=== PATIENT | male | born 1990 | race Hispanic/Latino ===

== ENCOUNTER 2017-09-09 22:02 | Emergency (ER) | payer OTHER ==
[2017-09-09 22:14] VITALS: BMI 27.6
[2017-09-09] MEDS ORDERED: Sodium Chloride 0.9% 500 ML IV STA (22:31)
--- NOTE | 2017-09-09 23:35 | ED PDOC ---
Arrival/HPI - General Chief Complaint: GI Problem Time Seen by Provider: 09/09/17 22:31 Historian: Patient EM Caveat: Unstable Vital Signs - History of Present Illness Narrative History of Present Illness (Text): 09/09/17 23:30 Pt is a 26 yo male who presents with 1 day of fever, diarrhea and vomiting ( approximately 1000ml) Pt states that he has felt fatigued for the past 2 weeks then suddenly woke up this morning with n/v/d, poor appetite, fever, chill, body pain. Denies chest pain, sob, [place], or any other symptoms. Has had sick contacts; states he has only been able to drink a bit of Gatorade today. Time/Duration: Prior to Arrival, 4-6 hours Symptom Onset: Sudden Symptom Course: Unchanged, Improving Quality: Aching, Pressure Severity Level: Mild Activities at Onset: Rest, Light, Eating Context: Work Past Medical History - Provider Review Nursing Documentation Reviewed: Yes - Travel History Have you recently traveled outside [place] w/in the past 3 mons?: No - Past History Past History: No Previous - Infectious Disease Hx of Infectious Diseases: None - Psychiatric Hx Substance Use: No - Surgical History Hx Appendectomy: Yes (2005) - Anesthesia Hx Anesthesia Reactions: No Hx Malignant Hyperthermia: No Family/Social History - Physician Review Nursing Documentation Reviewed: Yes Family/Social History: Unknown Family HX Smoking Status: Never Smoked Hx Alcohol Use: Yes Frequency of alcohol use: Socially Hx Substance Use: No Allergies/Home Meds Allergies/Adverse Reactions: Allergies No Known Allergies Allergy (Verified 09/09/17 22:14) Review of Systems - Review of Systems Constitutional: Normal, Fatigue, Fevers, Night Sweats Eyes: Normal ENT: Normal Respiratory: Normal Cardiovascular: Normal Gastrointestinal: Normal, Diarrhea (x 1day), Vomiting (x 1day), Appetite Changes Genitourinary Male: Normal Musculoskeletal: Arthralgias (x 1 day) Skin: Normal Neurological: Normal Endocrine: Normal Hemo/Lymphatic: Normal Psychiatric: Normal Physical Exam Vital Signs Reviewed: Yes Vital Signs Temp Pulse Resp BP Pulse Ox 09/10/17 00:50 98.7 F 82 18 103/54 L 100 09/09/17 22:02 100 F H 90 16 124/77 96 Temperature: Febrile Blood Pressure: Normal Pulse: Regular Respiratory Rate: Normal Appearance: Positive for: Non-Toxic, Uncomfortable Pain Distress: Mild Mental Status: Positive for: Alert and Oriented X 3 - Systems Exam Head: Present: Atraumatic, Normocephalic Pupils: Present: PERRL Extroacular Muscles: Present: EOMI Conjunctiva: Present: Normal Mouth: Present: Dry Pharnyx: Present: Normal Neck: Present: Normal Range of Motion Respiratory/Chest: Present: Clear to Auscultation, Good Air Exchange. No: Respiratory Distress, Accessory Muscle Use Cardiovascular: Present: Regular Rate and Rhythm, Normal S1, S2. No: Murmurs Abdomen: Present: Tenderness (mild, diffuse), Normal Bowel Sounds. No: Distention, Peritoneal Signs Back: Present: Normal Inspection Upper Extremity: Present: Normal Inspection. No: Cyanosis, Edema Lower Extremity: Present: Normal Inspection. No: Edema Neurological: Present: GCS=15, CN II-XII Intact, Speech Normal Skin: Present: Warm, Dry, Normal Color. No: Rashes Psychiatric: Present: Alert, Oriented x 3, Normal Insight, Normal Concentration Medical Decision Making ED Course and Treatment: 09/09/17 23:35 Impression Pt is a 26 yo male who presents with 1 day of fever, diarrhea and vomiting ( approximately 1000ml) Plan IV fluid bolus of 500 cc zofran tylenol Assess and Dispo Progress Note Pt states he feels much better on fluids with no urge to vomit Will likely wait until pt stable then send home on zofran, acetaminophen Oral intake challenge prior to dc; pt able to retain food and water Advised pt to return to ED promptly if high fever returns or any other alarming symptoms in the next 24 hrs VSS and pt ambulated well out out of the ED with father - Lab Interpretations Lab Results: Lab Results 09/09/17 22:47: Influenza Typ A,B (EIA) Negative for flu a/b - Medication Orders Current Medication Orders: Discontinued Medications Acetaminophen (Tylenol 325mg Tab) 650 mg PO STAT STA Stop: 09/09/17 22:34 Last Admin: 09/09/17 22:55 Dose: 650 mg Sodium Chloride (Sodium Chloride 0.9%) 500 mls @ 999 mls/hr IV .Q31M STA Stop: 09/09/17 23:01 Last Admin: 09/09/17 22:56 Dose: 999 mls/hr eMAR Start Stop Document 09/09/17 22:56 CNR (Rec: 09/09/17 22:56 CNR [id number]) Intravenous Solution Start Date 09/09/17 Start Time 22:56 Ondansetron HCl (Zofran Inj) 4 mg IVP STAT STA Stop: 09/09/17 22:33 Last Admin: 09/09/17 22:55 Dose: 4 mg IVP Administration Document 09/09/17 22:55 CNR (Rec: 09/09/17 22:55 CNR [id number]) Charges for Administration # of IVP Administrations 1 Disposition/Present on Arrival - Present on Arrival Any Indicators Present on Arrival: Yes History of DVT/PE: No History of Uncontrolled Diabetes: No Urinary Catheter: No History of Decub. Ulcer: No History Surgical Site Infection Following: None - Disposition Have Diagnosis and Disposition been Completed?: Yes Diagnosis: Influenza Disposition: HOME/ ROUTINE Disposition Time: 00:45 Patient Plan: Discharge Condition: STABLE Discharge Instructions (ExitCare): Ondansetron (By mouth), Influenza (ED) Additional Instructions: Dear Patient, You have been diagnosed with the flu that responds best to supportive care such as rest, plenty of fluids, and tylenol for pain and fever. If you have a cough, you may use Vicks VapoRub on the chest at night and use a humidifier. If you develop any alarming symptoms over the next 24 hrs, return to the emergency department immediately Follow up with your Primary doctor in the next 3 days All the best in our recovery Prescriptions: Acetaminophen [Acetaminophen 8 Hour] 650 mg PO Q6 #20 tablet.er Ondansetron HCl [Zofran] 4 mg PO Q8 #12 ml Forms: [facility] ([place]), WORK NOTE
[2017-09-10 01:06] VITALS: BP 103/54; PULSE 82; RESP 18; TEMP 98.7; O2SAT 100
== END 2017-09-10 01:06 | disposition home or self-care (01) ==
LOC: ED 22:02
DX: J11.1 Influenza due to unidentified influenza virus with other respiratory manifestations (principal)
CPT/HCPCS: 87804; 96374; 99283; J2405; J7040

== ENCOUNTER 2017-09-11 19:38 | Emergency (ER) | payer OTHER ==
[2017-09-11 20:46] VITALS: BMI 26.7
[2017-09-11] MEDS ORDERED: DiphenhydrAMINE 50 mg/ml Inj IVP STA (21:53)
[2017-09-11] MEDS ORDERED: Sodium Chloride 0.9% 1,000 ML IV STA (21:53)
[2017-09-11 22:21] LABS: BASO # 0.02 K/mm3 (0.0-2.0); BASO % 0.2 % (0.0-3.0); EOS # 0.1 (0.0-0.7); GRAN # 8.19 (1.4-6.5); GRAN % 79.4 % (50.0-68.0); HEMOGLOBIN 13.7 g/dL (14.0-18.0); LYMPH # 1.2 (1.2-3.4); LYMPH % 11.6 % (22.0-35.0); MEAN CELL VOLUME 92.2 fl (80.0-105.0); MEAN CORPUSCULAR HEMOGLOBIN 32.3 pg (25.0-35.0); MEAN PLATELET VOLUME 9.7 fl (7.0-11.0); MONO # 0.8 (0.1-0.6); MONO % 7.8 % (1.0-6.0); RBC 4.24 10^6/uL (3.5-6.1); RED CELL DISTRIBUTION WIDTH 12.7 % (11.5-14.5); WHITE BLOOD COUNT 10.3 10^3/ul (4.5-11.0)
[2017-09-11 22:25] LABS: ALB/GLOB RATIO 1.6 (1.1-1.8); ALBUMIN 4.2 g/dL (3.0-4.8); ALT/SGPT 548 U/L (7-56); AST/SGOT 550 U/L (17-59); BLOOD UREA NITROGEN 4 mg/dL (7-21); CALCIUM 9.9 mg/dL (8.4-10.5); GFR AFRICAN-AMERICAN > 60; GFR NON-AFRICAN AMERICAN > 60; LIPASE 226 U/L (23-300)
[2017-09-11] MEDS ORDERED: Iohexol 350 MG/100 ML VIAL ONE (22:29)
--- NOTE | 2017-09-11 23:37 | CT ---
EXAM: CT Abdomen and Pelvis With Intravenous Contrast CLINICAL HISTORY: 26 years old, male; Pain; Abdominal pain; Localized; Right lower quadrant (rlq); Additional info: Ruq/rlq abd pain TECHNIQUE: Axial computed tomography images of the abdomen and pelvis with intravenous contrast. All CT scans at this facility use one or more dose reduction techniques, viz.: automated exposure control; ma/kV adjustment per patient size (including targeted exams where dose is matched to indication; i.e. head); or iterative reconstruction technique. Coronal and sagittal reformatted images were created and reviewed. CONTRAST: 100 mL of OMNI administered intravenously. COMPARISON: No relevant prior studies available. FINDINGS: Limitations: Motion artifact - mild. Lower thorax: No acute findings. ABDOMEN: Liver: Mild periportal edema. Gallbladder and bile ducts: No calcified stones. No ductal dilation. Pancreas: No ductal dilation. No mass. Spleen: No splenomegaly. Adrenals: No mass. Kidneys and ureters: No mass. No hydronephrosis. Stomach and bowel: No definite mural thickening. No obstruction. Appendix: No definite findings to suggest acute appendicitis. PELVIS: Bladder: Unremarkable. Reproductive: Unremarkable as visualized. ABDOMEN and PELVIS: Intraperitoneal space: No significant fluid collection. No free air. Bones/joints: No acute fracture. Soft tissues: Tiny LEFT inguinal hernia containing fat. Vasculature: Unremarkable. No aneurysm. Lymph nodes: Several subcentimeter short axis mesenteric lymph nodes, nonspecific. IMPRESSION: 1. Possible mesenteric adenitis. Clinical correlation is needed. 2. Periportal edema, nonspecific. 3. Incidental/non-acute findings are described above.
[2017-09-12 01:55] LABS: PH,URINE 6.5 (4.7-8.0); URINE BILIRUBIN NEGATIVE (NEGATIVE); URINE BLOOD NEGATIVE (NEGATIVE); URINE GLUCOSE (UA) NEGATIVE (NEGATIVE); URINE LEUKOCYTE ESTERASE NEGATIVE Leu/uL (NEGATIVE); URINE NITRATE NEGATIVE (NEGATIVE); URINE PROTEIN NEGATIVE mg/dL (<30 mg/dL)
[2017-09-12 02:00] LABS: URINE APPEARANCE CLEAR (CLEAR); URINE COLOR YELLOW (YELLOW)
--- NOTE | 2017-09-12 04:06 | ED PDOC ---
Arrival/HPI - General Historian: Patient - History of Present Illness Symptom Onset: Sudden Symptom Course: Intermittent Quality: Stabbing Severity Level: 6 <Kimberly Greco - Last Filed: 09/12/17 04:06> <Kennedy Gomez - Last Filed: 09/12/17 05:18> - General Chief Complaint: Abnormal Skin Integrity Time Seen by Provider: 09/11/17 21:18 - History of Present Illness Narrative History of Present Illness (Text): 09/12/17 03:54 A 26 year old male presents to the emergency department complaining of sudden onset right upper and epigastric abdominal pain. Patient describes the pain as a sharp stabbing sensation that radiates to his chest. Patient reports he noticed an erythematous rash to bilateral arms, hips and thighs around the same time his pain developed. Patient was seen in the emergency room 3 days ago on and diagnosed with the flu. He notes his pain has subsided since but reports intermittent sharp stabbing pain located in the ruq of the abdomen. pt denies palpitations. denies SOB. pt denies n/v/d/c. no cp at present time. no dizziness or weakness. no urinary symptoms. pt denies any new medications. no testicular pain. (Kimberly Greco) Past Medical History - Provider Review Nursing Documentation Reviewed: Yes - Travel History Have you recently traveled outside [place] w/in the past 3 mons?: No - Past History Past History: No Previous - Infectious Disease Hx of Infectious Diseases: None - Tetanus Immunization Tetanus Immunization: Unknown - Cardiac Hx Cardiac Disorders: No - Pulmonary Hx Respiratory Disorders: No - Neurological Hx Neurological Disorder: No - HEENT Hx HEENT Disorder: No - Renal Hx Renal Disorder: No - Endocrine/Metabolic Hx Endocrine Disorders: No - Hematological/Oncological Hx Blood Disorders: No - Integumentary Hx Dermatological Disorder: No - Musculoskeletal/Rheumatological Hx Musculoskeletal Disorders: No - Gastrointestinal Hx Gastrointestinal Disorders: No - Genitourinary/Gynecological Hx Genitourinary Disorders: No - Psychiatric Hx Psychophysiologic Disorder: No Hx Substance Use: No - Surgical History Hx Appendectomy: Yes (2005) - Anesthesia Hx Anesthesia: Yes Hx Anesthesia Reactions: No Hx Malignant Hyperthermia: No <Kimberly Greco - Last Filed: 09/12/17 04:06> Family/Social History - Physician Review Nursing Documentation Reviewed: Yes Family/Social History: Unknown Family HX Smoking Status: Never Smoked Hx Alcohol Use: Yes Hx Substance Use: No <Kimberly Greco - Last Filed: 09/12/17 04:06> Allergies/Home Meds <Kimberly Greco - Last Filed: 09/12/17 04:06> <JasonKennedy - Last Filed: 09/12/17 05:18> Allergies/Adverse Reactions: Allergies No Known Allergies Allergy (Verified 09/09/17 22:14) Review of Systems - Review of Systems Constitutional: absent: Fatigue, Fevers Respiratory: absent: SOB, Cough Cardiovascular: Chest Pain. absent: Palpitations Gastrointestinal: Abdominal Pain. absent: Constipation, Diarrhea, Nausea, Vomiting Genitourinary Male: absent: Frequency, Hematuria Musculoskeletal: absent: Arthralgias, Back Pain, Neck Pain Skin: Rash. absent: Pruritis Neurological: absent: Headache, Dizziness Psychiatric: absent: Anxiety, Depression <Kimberly Greco - Last Filed: 09/12/17 04:06> Physical Exam Vital Signs Reviewed: Yes Temperature: Afebrile Blood Pressure: Normal Pulse: Regular Respiratory Rate: Normal Appearance: Positive for: Well-Appearing, Non-Toxic, Comfortable Pain Distress: None Mental Status: Positive for: Alert and Oriented X 3 - Systems Exam Head: Present: Atraumatic Mouth: Present: Moist Mucous Membranes Nose (External): Present: Atraumatic Neck: Present: Normal Range of Motion, Trachea Midline Respiratory/Chest: Present: Clear to Auscultation, Good Air Exchange. No: Respiratory Distress, Accessory Muscle Use Cardiovascular: Present: Regular Rate and Rhythm, Normal S1, S2. No: Murmurs Abdomen: Present: Tenderness (+ ruq and epigastric tenderness), Normal Bowel Sounds, Guarding. No: Distention, Peritoneal Signs, Rebound Back: Present: Normal Inspection Upper Extremity: Present: Normal ROM Lower Extremity: Present: Normal ROM Neurological: Present: GCS=15, Speech Normal Skin: Present: Warm, Dry, Rashes (multiple erythematous plaques noted to the volar aspects of the arms bilaterally as well as the medial thighs bilaterally, and lower abdomen. ) Psychiatric: Present: Alert, Oriented x 3 <Kimberly Greco - Last Filed: 09/12/17 04:06> Vital Signs Temp Pulse Resp BP Pulse Ox 09/12/17 04:21 98.5 F 77 17 150/85 98 09/12/17 00:13 63 17 140/85 98 09/11/17 20:46 97.9 F 68 18 136/86 98 Medical Decision Making <Kimberly Greco - Last Filed: 09/12/17 04:06> <Kennedy Gomez - Last Filed: 09/12/17 05:18> ED Course and Treatment: 09/12/17 04:06 Patient is nontoxic well appearing with stable vital signs presenting with right upper quadrant and epigastricabdominal pain CBC within normal limits CMP elevated AST ALT and alkaline phosphatase Lipase 266 Urinalysis wnl cxr; wnl pt was given pepcid and benadryl without improvement in rash. CAT scan: FINDINGS: Limitations: Motion artifact - mild. Lower thorax: No acute findings. ABDOMEN: Liver: Mild periportal edema. Gallbladder and bile ducts: No calcified stones. No ductal dilation. Pancreas: No ductal dilation. No mass. Spleen: No splenomegaly. Adrenals: No mass. Kidneys and ureters: No mass. No hydronephrosis. Stomach and bowel: No definite mural thickening. No obstruction. Appendix: No definite findings to suggest acute appendicitis. PELVIS: Bladder: Unremarkable. Reproductive: Unremarkable as visualized. ABDOMEN and PELVIS: Intraperitoneal space: No significant fluid collection. No free air. Bones/joints: No acute fracture. Soft tissues: Tiny LEFT inguinal hernia containing fat. Vasculature: Unremarkable. No aneurysm. Lymph nodes: Several subcentimeter short axis mesenteric lymph nodes, nonspecific. IMPRESSION: 1. Possible mesenteric adenitis. Clinical correlation is needed. 2. Periportal edema, nonspecific. 3. Incidental/non-acute findings are described above. Patient reassessment: rash slightly improved. non tender; case discussed with dr. calles; accepts admission; add on a hepatitis panel and Monospot. Discussed all results with patient in depth Impression: Abdominal pain, elevated transaminases MedSurg Dr. Calles, consult dr. crabtree 09/12/17 04:09 (Kimberly Greco) - Lab Interpretations Lab Results: 09/11/17 21:59 09/11/17 21:59 Lab Results 09/11/17 21:59: WBC 10.3, RBC 4.24, Hgb 13.7 L, Hct 39.1 L, MCV 92.2, MCH 32.3, MCHC 35.0, RDW 12.7, Plt Count 185, MPV 9.7, Gran % 79.4 H, Lymph % (Auto) 11.6 L, Pope % (Auto) 7.8 H, Eos % (Auto) 1.0 L, Baso % (Auto) 0.2, Gran # 8.19 H, Lymph # (Auto) 1.2, Pope # (Auto) 0.8 H, Eos # (Auto) 0.1, Baso # (Auto) 0.02 09/11/17 21:59: Sodium 142, Potassium 3.9, Chloride 103, Carbon Dioxide 28, Anion Gap 15, BUN 4 L, Creatinine 0.7 L, Est GFR ( Amer) > 60, Est GFR ( Non-Af Amer) > 60, Random Glucose 87, Calcium 9.9, Total Bilirubin 0.9, AST 550 H, ALT 548 H, Alkaline Phosphatase 181 H, Total Protein 6.9, Albumin 4.2, Globulin 2.6, Albumin/Globulin Ratio 1.6, Lipase 226 - RAD Interpretation Radiology Orders: 09/11/17 21:53 CHEST PORTABLE [RAD] Stat 09/11/17 21:54 ABD & PELVIS IV CONTRAST ONLY [CT] Stat - Medication Orders Current Medication Orders: Ibuprofen (Motrin Tab) 600 mg PO STAT STA Stop: 09/12/17 05:18 Discontinued Medications Diphenhydramine HCl (Benadryl) 25 mg IVP STAT STA Stop: 09/11/17 21:54 Last Admin: 09/11/17 22:26 Dose: 25 mg IVP Administration Document 09/11/17 22:26 IT (Rec: 09/11/17 22:26 IT [email or web address] Charges for Administration # of IVP Administrations 1 Famotidine (Pepcid) 20 mg IVP STAT STA Stop: 09/11/17 21:54 Last Admin: 09/11/17 22:26 Dose: 20 mg IVP Administration Document 09/11/17 22:26 IT (Rec: 09/11/17 22:26 IT [id number] Charges for Administration # of IVP Administrations 1 Sodium Chloride (Sodium Chloride 0.9%) 1,000 mls @ 999 mls/hr IV .Q1H1M STA Stop: 09/11/17 22:53 Last Admin: 09/11/17 22:26 Dose: 999 mls/hr eMAR Start Stop Document 09/11/17 22:26 IT (Rec: 09/11/17 22:27 IT [id number]) Intravenous Solution Start Date 09/11/17 Start Time 22:27 End Date 09/11/17 - PA / RN OUTPATIENT SURGERY / Resident Statement / has reviewed & agrees with the documentation as recorded. / has examined the patient and agrees with the treatment plan. <Kennedy Gomez - Last Filed: 09/12/17 05:18> Disposition/Present on Arrival - Present on Arrival Any Indicators Present on Arrival: No History of DVT/PE: No History of Uncontrolled Diabetes: No Urinary Catheter: No History of Decub. Ulcer: No History Surgical Site Infection Following: None - Disposition Have Diagnosis and Disposition been Completed?: Yes Disposition Time: 00:55 Patient Plan: Observation <Kimberly Greco - Last Filed: 09/12/17 04:06> <Kennedy Gomez - Last Filed: 09/12/17 05:18> - Disposition Diagnosis: Abdominal pain, Elevated liver function tests Disposition: HOSPITALIZED Patient Problems: Current Active Problems Problem Status Onset Abdominal pain Acute Elevated liver function tests Acute Condition: FAIR
[2017-09-12 04:22] VITALS: TEMP 98.5
[2017-09-12] MEDS ORDERED: Sodium Chloride 0.9% 1,000 ML IV SCH (08:15)
[2017-09-12 09:29] LABS: ALB/GLOB RATIO 1.6 (1.1-1.8); ALBUMIN 3.7 g/dL (3.0-4.8); ALT/SGPT 398 U/L (7-56); AST/SGOT 238 U/L (17-59); BLOOD UREA NITROGEN 5 mg/dL (7-21); CALCIUM 9.1 mg/dL (8.4-10.5); GFR AFRICAN-AMERICAN > 60; GFR NON-AFRICAN AMERICAN > 60
--- NOTE | 2017-09-12 10:10 | RAD ---
HISTORY: abd pain COMPARISON: No prior. FINDINGS: LUNGS: No active pulmonary disease. PLEURA: No significant pleural effusion identified, no pneumothorax apparent. CARDIOVASCULAR: Normal. OSSEOUS STRUCTURES: No significant abnormalities. VISUALIZED UPPER ABDOMEN: Normal. OTHER FINDINGS: None. IMPRESSION: No active disease.
--- NOTE | 2017-09-12 10:17 | CARD ---
APPROVED REPORT EKG Measurement Heart [id number] [id number] <Conclusion> Sinus bradycardia Incomplete right bundle branch block LVH by voltage, probably a normal variant
[2017-09-12 12:52] LABS: HEPATITIS B SURFACE AG Negative (NEGATIVE)
[2017-09-12 12:57] LABS: HEPATITIS A IGM NEGATIVE (NEGATIVE); HEPATITIS B CORE AB NEGATIVE (NEGATIVE)
[2017-09-12 13:09] LABS: HEPATITIS C ANTIBODY NEGATIVE (NEGATIVE)
--- NOTE | 2017-09-12 13:13 | CON ---
DATE: 09/12/2017 REQUESTING PHYSICIAN: Dr. Rito Calles. REASON FOR CONSULT: I have been asked to see this 26-year-old male who comes to the hospital with worsening abdominal pain associated with a rash on his extremities and chest. The patient came to the Emergency Room two days ago after experiencing nausea, vomiting, diarrhea with weakness. He states that he had a syncopal episode. He was seen in the Emergency Room and treated with IV fluids for dehydration and Zofran. He was discharged home; over the subsequent 48 hours, he developed mid-abdominal pain at the level of the umbilicus radiating up towards his chest. He did not have any further nausea, vomiting or diarrhea. The abdominal pain was accompanied by a rash, which he describes as red splotches suggestive of an urticarial rash involving his extremities and chest. He did not take any unusual medications, such as, antibiotics or other prescription medications. CT scan of the abdomen and pelvis performed in the Emergency Room showed some mesenteric lymphadenopathy and some mild inflammation around the the geremias hepatis. There was no evidence of gallstones, gallbladder wall thickening or pericholecystic fluid. There is no evidence of dilated bile ducts. There were no liver lesions. His routine blood work showed liver enzymes to be elevated at 550 AST, 548 ALT and an alkaline phosphatase of 181. This morning, his liver enzyme showed AST 238, ALT 398, alkaline phosphatase of 121. Serum lipase was normal. His urticarial rash has resolved. His abdominal pain has improved and has almost completely resolved. He denies any fevers or chills. PAST MEDICAL HISTORY: Unremarkable. PAST SURGICAL HISTORY: Notable for an appendectomy approximately 10 years ago. SOCIAL HISTORY: Denies cigarette smoking. He consumes alcohol on a social basis. FAMILY HISTORY: Noncontributory. REVIEW OF SYSTEMS: A 14-point review of systems is notable for abdominal pain and rash. MEDICATIONS AT HOME: Acetaminophen 650 mg every 6 hours and Zofran 4 mg three times a day as needed. PHYSICAL EXAMINATION VITAL SIGNS: Reveal temperature of 98.5, blood pressure 128/75, heart rate of 75. HEENT: Reveal sclerae to be white. Conjunctivae pink. NECK: Supple. CHEST: Lungs clear. HEART: Exam reveals regular rate and rhythm. ABDOMEN: Soft, nontender, no mass. EXTREMITIES: Show no rash. He does have a small tattoo on both forearms and the lateral aspect of his right ankle. SKIN: No rashes seen. DATA: Laboratory data reveal normal electrolytes. AST this morning is 238, ALT 398. CBC reveals white blood cell count 10.3, hemoglobin 13.7, sedimentation rate of 10. IMPRESSION: A 26-year-old male with: 1. Abdominal pain and rash, which have both essentially resolved with a CT scan of the abdomen and pelvis showing mesenteric lymphadenopathy with lymph nodes measuring less than 10 mm with some nonspecific inflammation in the periportal area. I suspect that the patient has mesenteric lymphadenitis secondary to a gastroenteritis. 2. Elevated liver enzymes, one most rule out gallstones. A CT scan of the abdomen and pelvis did not show any calcified gallstones. RECOMMENDATIONS: We will request a stat ultrasound of the gallbladder. If this is negative for gallstones, the patient can be discharged home on a low-fat lactose-free diet with outpatient followup. If gallstones are present, the patient may need to be observed for 24 hours and follow liver enzymes. Richard Pitt MD
[2017-09-12 13:48] VITALS: BP 125/80; PULSE 72; RESP 17; O2SAT 100
--- NOTE | 2017-09-12 13:59 | US ---
HISTORY: abdominal pain, elevated LFT's COMPARISON: None. TECHNIQUE: Sonographic evaluation of the right upper quadrant of the abdomen. FINDINGS: LIVER: Measures 16.1 cm in length. Normal echogenicity of the liver parenchyma. No mass. No intrahepatic bile duct dilatation. GALLBLADDER: Unremarkable. No gallstones. COMMON BILE DUCT: Measures 2 mm. No stones. No dilatation. PANCREAS: No mass or ductal dilatation. There is a small peripancreatic node 11 mm in greatest dimension. A corresponding peripancreatic lymph node is evident on CT examination of the previous day. RIGHT KIDNEY: Measures 10.8 cm in length. Normal echogenicity. No calculus, mass, or hydronephrosis. AORTA: No aneurysmal dilatation. IVC: Unremarkable. OTHER FINDINGS: None . IMPRESSION: No acute abnormality. Incidental 11 mm peripancreatic lymph node. No evidence of biliary obstruction or cholecystitis.
--- NOTE | 2017-09-12 14:08 | HP ---
HISTORY OF PRESENT ILLNESS: A 26-year-old white male, admitted through the ER last night after complaining of some chest pain and shortness of breath, some abdominal pain and rash in his upper extremities and lower abdomen and lower pelvis. The patient was found to have markedly elevated liver enzymes 10 times normal with normal alkaline phos and normal bilirubin with transaminases in the 500-600 range. Monospot is pending. The patient is slightly improved with less rash today. PHYSICAL EXAMINATION: VITAL SIGNS: His temperature is 98.5, blood pressure 130/81. The patient had been in the ER for a nausea and vomiting episode and was given Zofran and Tylenol. GENERAL: Physical examination shows a well-developed, well-nourished white male, in no apparent distress. HEENT: Essentially within normal limits. HEART: Regular sinus rhythm. No S3 or murmurs. ABDOMEN: Benign. No hepatosplenomegaly. No guarding. Bowel sounds are normoactive. EXTREMITIES: No cyanosis, clubbing or edema. There is a faint maculopapular rash on the upper thighs, lower pelvis, lower abdomen and the upper extremities, which is fading. LABORATORY DATA: CT of the abdomen showed possible mesenteric lymphadenitis and some slight swelling in the geremias hepatis, otherwise normal texture of the liver. IMPRESSION: Acute hepatitis, probably viral hepatitis. Rule out mesenteric lymphadenitis and rash associated with disease. PLAN: To discontinue all Tylenol. Most likely, we will discharge the patient home if he remains stable and close observation with repeat laboratory data in 24 to 48 hours. Rito Calles MD
--- NOTE | 2017-09-12 15:12 | DS ---
HISTORY OF PRESENT ILLNESS: This is a 26-year-old white male admitted to the hospital with a diffuse maculopapular rash on the abdomen and the legs associated with some shortness of breath, some chest discomfort, and was found to have markedly elevated liver enzymes, approximately 10 times normal. The patient was hydrated, repeat enzymes were negative. The patient had CT of the abdomen and pelvis, which showed some edema in the geremias hepatis. The patient was seen in consultation by Dr. Pitt. He had a negative ultrasound of the abdomen. His laboratory serologies are pending. The patient will be discharged home since she is improved clinically and has no nausea, vomiting. He is tolerating his diet well. His vital signs are stable. He will have repeat liver enzymes in approximately 3 days. FINAL DISCHARGE DIAGNOSES: 1. Transaminitis. 2. Rash. 3. Dehydration. Rito Calles MD
== END 2017-09-12 13:35 | disposition home or self-care (01) ==
LOC: ED 19:38 → ERH 09-12 00:57 → UNDOADMOB 09-12 00:57 → ERH 09-12 01:55
DX: R79.89 Other specified abnormal findings of blood chemistry (principal); R10.13 Epigastric pain
CPT/HCPCS: 71045; 74177; 76705; 80053; 80074; 81003; 83690; 85025; 85651; 86039; 86140; 86255; 86308; 93005; 96374; 96375; 99285; J1200; J7040; Q9967